=== PATIENT | female | born 1970 | race Asian ===

== ENCOUNTER 2019-06-26 09:21 | Day surgery (SDC) | payer MEDICAID ==
[~2019-06-26] VITALS: Ht 154.9 cm; Wt 68.3 kg
[2019-06-26] MEDS ORDERED: normal saline 1000ml 1,000 ML IV PRN (09:40)
[2019-06-26] MEDS ORDERED: albumin 25% 100mL bottle x 1 IV PRN (09:40)
[2019-06-26] MEDS ORDERED: normal saline 500ml IV soln 500 ML IV ONE (09:45)
[2019-06-26] MEDS ORDERED: MORP10SO22 PO (10:02)
[2019-06-26] MEDS ORDERED: ONDA4TAB6 PO (10:04)
[2019-06-26] MEDS ORDERED: OMEP40CA13 PO (10:04)
[2019-06-26] MEDS ORDERED: ENZY1CAP (10:05)
[2019-06-26] MEDS ORDERED: ASCO500C15 PO (10:06)
[2019-06-26] MEDS ORDERED: CHOL10002 PO (10:06)
[2019-06-26] MEDS ORDERED: TURM538C PO (10:07)
[2019-06-26] MEDS ORDERED: [UNRECOGNIZED DRUG - OTHER] (10:11)
[2019-06-26] MEDS ORDERED: cyanocobalamin (10:18)
[2019-06-26] MEDS ORDERED: [UNRECOGNIZED DRUG - OTHER] (10:18)
[2019-06-26 10:30] VITALS: BP 113/73
[2019-06-26 10:32] VITALS: BP 101/70
[2019-06-26 10:59] VITALS: BP 103/63
[2019-06-26 11:14] VITALS: BP 108/54
[2019-06-26 11:44] VITALS: BP 108/54
== END 2019-06-26 12:17 | disposition home or self-care (01) ==
LOC: SSTAY O 09:21
PROVIDERS: ATTEND Radiology Vascular & Interventional Radiology
DX: R18.8 Other ascites (principal); Z85.038 Personal history of other malignant neoplasm of large intestine; Z90.49 Acquired absence of other specified parts of digestive tract; Z79.899 Other long term (current) drug therapy
CPT/HCPCS: 49083; C1729; J7030; J7040; P9047

== ENCOUNTER 2019-07-13 07:49 | Day surgery (SDC) | payer MEDICAID ==
[~2019-07-13 07:49] MED LIST: ASCO500C15 PO; CHOL10002 PO; ENZY1CAP; MORP10SO22 PO; OMEP40CA13 PO; ONDA4TAB6 PO; TURM538C PO; [UNRECOGNIZED DRUG - OTHER]; [UNRECOGNIZED DRUG - OTHER]; cyanocobalamin
[2019-07-13 08:00] VITALS: BP 105/68
--- NOTE | 2019-07-13 10:30 | NUR ---
ULTRASOUND DONE. DECISION MADE WITH PATIENT AND Erick Laughlin THAT NO PARACENTESIS WOULD BE DONE TODAY. IF NEEDED PATIENT WILL RESCHEDULE.
== END 2019-07-13 10:38 | disposition home or self-care (01) ==
LOC: SSTAY O 07:49
PROVIDERS: ATTEND Radiology Vascular & Interventional Radiology
DX: R18.8 Other ascites (principal); C18.6 Malignant neoplasm of descending colon; Z90.49 Acquired absence of other specified parts of digestive tract; Z79.899 Other long term (current) drug therapy
CPT/HCPCS: 76705; C1729

== ENCOUNTER 2019-07-31 08:20 | Day surgery (SDC) | payer MEDICAID ==
[~2019-07-31] VITALS: Ht 154.9 cm; Wt 65.1 kg
[2019-07-31] MEDS ORDERED: albumin 25% 100mL bottle x 1 IV PRN (08:35)
[2019-07-31 08:38] VITALS: BP 86/60
== END 2019-07-31 09:25 | disposition home or self-care (01) ==
LOC: SSTAY O 08:20
PROVIDERS: ATTEND Radiology Vascular & Interventional Radiology
DX: R18.8 Other ascites (principal); R14.0 Abdominal distension (gaseous); G89.29 Other chronic pain; Z79.891 Long term (current) use of opiate analgesic; Z90.49 Acquired absence of other specified parts of digestive tract; Z85.038 Personal history of other malignant neoplasm of large intestine
CPT/HCPCS: 76705